=== PATIENT | female | born 1995 | race Caucasian/White ===

== ENCOUNTER 2020-12-28 11:26 | Outpatient (CLI) | payer BC, SELFPAY ==
--- NOTE | ~2020-12-28 | XR_ITS ---
EXAMINATION: XR hysterosalpingogram INDICATION: Infertility TECHNIQUE: Hysterosalpingogram was performed by Dr. Yoav Snider MD with fluoroscopic guidance . I was present to obtain fluoroscopic images. Fluoroscopy exposure time was 0.2 minutes. The DAP for this procedure was 2.42 Gycm2. FINDINGS: Fluoroscopic images demonstrate a normal appearing endometrial cavity which has been cannu lated. Upon injection of contrast, both fallopian tubes opacify and are normal in appearance. There is free spillage bilaterally. Uterus is without evidence of synechia. IMPRESSION: Patent fallopian tubes. Reviewed, dictated and finalized at location A. IMPRESSION: Patent fallopian tubes.
== END 2020-12-28 11:27 | disposition home or self-care (01) ==
LOC: ANHIMG 11:40
PROVIDERS: PCP Obstetrics & Gynecology; Visit Provider Obstetrics & Gynecology
DX: Z30.2 Encounter for sterilization (principal)
CPT/HCPCS: 58340; 74740; Q9966

== ENCOUNTER 2022-01-02 17:51 | Inpatient (IN) | payer BC, SELFPAY ==
[2022-01-02] VITALS (7 sets, daily range): BP systolic 116–131; BP diastolic 68–89; PULSE 78–95; TEMP 36.4–36.6; O2SAT 99; BMI 31.1
--- NOTE | 2022-01-02 18:18 | LDADM ---
This patient, Ade Cedillo, was admitted to Labor/Delivery/Recovery 109 on 01/02/22 at 17:51. Plans for labor, pain management and were discussed with patient. Patient/family oriented to hospital policies and general routines including ID bracelet, bed and alarms, visiting hours, pain management, procedures, bathroom and other care routines, personal items, smoking policy, room service/diet and guest tray routines, infant security routines, and visiting hours. Patient/Family are encouraged to report perceived risks to care and to ask questions if they do not understand what they are told or what they should do. See OBIX for further documentation.
[2022-01-02 18:36] LABS: Basophils Percent Auto 0.3 % (0.2-1.2); Eosinophils Absolute Auto 0.1 K/mm3 (0-0.3); Hematocrit 41.5 % (37.0-47.0); Hemoglobin 14.1 g/dL (12.0-15.0); Immature Granulocyte Absolute 0.07 K/mm3 (0.00-0.031); Immature Granulocyte Percent A 0.7 % (0-0.5); Lymphocytes Absolute Auto 2.18 K/mm3 (0.9-3.2); Lymphocytes Percent Auto 20.5 % (18.3-44.2); Mean Corpuscular Hemoglobin 29.6 pg (26-34); Mean Corpuscular Volume 87.2 fl (80-100); Mean Platelet Volume 10.6 fl (7.4-10.4); Monocytes Absolute Auto 0.9 K/mm3 (0.1-0.6); Monocytes Percent Auto 8.4 % (2.6-8.5); Neutrophils Absolute Auto 7.4 K/mm3 (1.3-6.7); Neutrophils Percent Auto 69.1 % (45.5-73.1); Platelet Count Result 205 k/mm3 (150-375); Red Blood Count 4.76 M/mm3 (4.2-5.4); Red Cell Distribution Width 13.2 % (11.5-14.5); White Blood Count 10.7 K/mm3 (4.5-10.0)
[2022-01-02] MEDS: DINOPROSTONE 10 MG VAG INSERT VAGINAL (19:04)
[2022-01-03] VITALS (180 sets, daily range): BP systolic 78–147; BP diastolic 46–127; PULSE 64–179; TEMP 36.3–36.9; O2SAT 95–100
[2022-01-03] MEDS: LACTATED RINGERS 1,000 ML 125 ML IV CONT ×3 (06:33→14:13)
[2022-01-03] MEDS: OXYTOCIN 30 UNITS/NS 500 ML 30 UNITS/500 ML BAG IV CONT (06:34)
--- NOTE | 2022-01-03 06:53 | WPDANESEPP ---
Anes - Eval Pre Procedure Procedure: Labor epidural Date/Time: 01/03/22 06:53 Surgeon: Thanh Perez Preop Diagnosis: Abd pain with contractions Pre Op Diagnosis: Induction of Labor Patient Data Age: 26 Gender: F Height: 1.7 m Weight: 90 kg Last Vital Signs Temp 97.4 F L 01/03/22 06:27 Pulse 108 H 01/03/22 05:50 BP 116/84 01/03/22 05:50 Pulse Ox 99 01/02/22 18:38 O2 Del Method Room Air 01/02/22 17:51 Allergies Allergy/AdvReac Type Severity Reaction Status Date / Time Sulfa (Sulfonamide Allergy Hives Verified 11/30/21 15:28 Antibiotics) Home Medications Medication Instructions Recorded Confirmed Type cetirizine 10 mg tablet (Zyrtec) 10 mg PO DAILY 11/30/21 11/30/21 History cholecalciferol (vitamin D3) 50 50 mcg PO DAILY 11/30/21 11/30/21 History mcg (2,000 unit) tablet (Vitamin D3) prenat.vits,no,ffp-diud-nocjo 1 tablet PO DAILY 11/30/21 11/30/21 History pyridoxine (vitamin B6) 100 mg 100 mg PO DAILY 11/30/21 11/30/21 History tablet Laboratory Tests 01/02/22 01/02/22 01/02/22 18:30 18:30 18:30 WBC 10.7 K/mm3 H K/mm3 (4.5-10.0) RBC 4.76 M/mm3 M/mm3 (4.2-5.4) Hgb 14.1 g/dL g/dL (12.0-15.0) Hct 41.5 % % (37.0-47.0) MCV 87.2 fl fl (80-100) MCH 29.6 pg pg (26-34) MCHC 34.0 g/dl g/dl (32-36) RDW 13.2 % % (11.5-14.5) Plt Count 205 k/mm3 k/mm3 (150-375) MPV 10.6 fl H fl (7.4-10.4) Immature Gran % (Auto) 0.7 % H % (0-0.5) Neut % (Auto) 69.1 % % (45.5-73.1) Lymph % (Auto) 20.5 % % (18.3-44.2) [place] % (Auto) 8.4 % % (2.6-8.5) Eos % (Auto) 1.0 % % (0-4.4) Baso % (Auto) 0.3 % % (0.2-1.2) Lymph # (Auto) 2.18 K/mm3 K/mm3 (0.9-3.2) [place] # (Auto) 0.9 K/mm3 H K/mm3 (0.1-0.6) Eos # (Auto) 0.1 K/mm3 K/mm3 (0-0.3) Baso # (Auto) 0.0 K/mm3 K/mm3 (0.0-0.1) Abs Immat Gran (auto) 0.07 K/mm3 H K/mm3 (0.00-0.031) Absolute Neuts (auto) 7.4 K/mm3 H K/mm3 (1.3-6.7) Absolute Nucleated RBC 0.0 K/mm3 K/mm3 (0.0-0.012) Nucleated RBC % 0.0 % % (0.0-0.2) RPR Pending Blood Type B Positive Antibody Screen Negative Patient hx anesthesia problems: none Family hx anesthesia problems: none Results Review: All pre-operative results and documents have been reviewed as part of the pre-operative evaluation. [facility] Past Medical History Medical History Overweight (BMI 25.0-29.9) and not yet delivered Family History Family History Other Patient denies significant medical history Social History Social History Smoking status: Never smoker Substance use: never Spiritual care concerns: No Exam Day of Procedure 01/03/22 06:53 Patient weight: overweight Airway: Mallampati scale class II
--- NOTE | 2022-01-03 07:40 | PM.IMHP ---
H&P: HPI History of Present Illness Date/Time: 01/03/22 07:40 Chief Complaint: Postdates induction Narrative: this is a 26-year-old para 0 whose last menstrual period of 03/22/2021, EDC of 12/27/2021, presents at 41 weeks gestation for induction of labor. Her has been uncomplicated she has an early ultrasound at 10 weeks confirming dates. She has negative group B strep PMFSH Past Medical History Medical History Overweight (BMI 25.0-29.9) and not yet delivered Family History Family History Other Patient denies significant medical history Social History Social History Smoking status: Never smoker Substance use: never Spiritual care concerns: No Meds Home Medications and Allergies Home Medications Medication Instructions Recorded Confirmed Type cetirizine 10 mg tablet (Zyrtec) 10 mg PO DAILY 11/30/21 11/30/21 History cholecalciferol (vitamin D3) 50 50 mcg PO DAILY 11/30/21 11/30/21 History mcg (2,000 unit) tablet (Vitamin D3) prenat.vits,no,nrm-paqb-ddlak 1 tablet PO DAILY 11/30/21 11/30/21 History pyridoxine (vitamin B6) 100 mg 100 mg PO DAILY 11/30/21 11/30/21 History tablet Allergies Allergy/AdvReac Type Severity Reaction Status Date / Time Sulfa (Sulfonamide Allergy Hives Verified 11/30/21 15:28 Antibiotics) Vital Signs Vital Signs - 24 hr 01/02/22 17:51 01/02/22 18:33 01/02/22 18:35 Temperature Pulse Rate 78 Blood Pressure 131/75 Pulse Oximetry 99 Oxygen Delivery Room Air 01/02/22 18:34 01/02/22 18:38 01/02/22 21:08 Temperature 97.9 F Pulse Rate 82 Blood Pressure 124/89 Pulse Oximetry 99 Oxygen Delivery 01/02/22 22:28 01/02/22 22:30 01/03/22 00:30 Temperature 97.5 F L 97.6 F Pulse Rate 91 Blood Pressure 116/68 Pulse Oximetry Oxygen Delivery 01/03/22 05:49 01/03/22 05:50 01/03/22 06:27 Temperature 97.4 F L Pulse Rate 98 108 H Blood Pressure 147/127 H 116/84 Pulse Oximetry Oxygen Delivery 01/03/22 07:16 01/03/22 07:30 Temperature Pulse Rate 68 87 Blood Pressure 110/65 105/76 Pulse Oximetry Oxygen Delivery Exam Const: General: cooperative, healthy appearing, comfortable, well groomed and average body habitus Orientation/consciousness: oriented to person, oriented to place and oriented to time HENMT: Head: normal to inspection Resp: Effort & Inspection: normal respiratory effort Cardio: Rate: regular rate Rhythm: regular rhythm Heart sounds: S1 normal heart sound present and S2 normal heart sound present GI: Inspection: normal to inspection ( gravid soft uterus) : External Female Exam: normal external appearance Speculum Exam - Vagina: normal appearance of the vagina Speculum Exam - Cervix: normal appearance of the cervix ( /2. AROM clear. FHTs reassuring) H&P: Results Labs Labs: Short CBC 01/02/22 Range/Units 18:30 WBC 10.7 H (4.5-10.0) K/mm3 Hgb 14.1 (12.0-15.0) g/dL Hct 41.5 (37.0-47.0) % Plt Count 205 (150-375) k/mm3 Assessment and Plan Assessment and plan (1) Post-dates : Code(s): O48.0 - Post-term Status: Acute Plan medical induction of labor. Spontaneous vaginal delivery expected. She has an epidural candidate
--- NOTE | 2022-01-03 11:47 | PM.OBPNLAB ---
Pain Control Date/time seen: 01/03/22 11:47 Pain control: tolerating well Pelvic Exam Dilation (cm): 2 Effacement (%): 50 station: -2 Amniotic membrane status: Leaking
[2022-01-03] MEDS: ONDANSETRON INJ 4 MG/2 ML VIAL IV PUSH (15:11)
--- NOTE | 2022-01-03 16:25 | PM.OBPNLAB ---
Pain Control Date/time seen: 01/03/22 16:25 Pain control: tolerating well and epidural Pelvic Exam Dilation (cm): 4 Effacement (%): 80 station: -2 Amniotic membrane status: Leaking Contractions Monitor mode: Internal
--- NOTE | 2022-01-03 19:38 | PM.OBPNLAB ---
Pain Control Date/time seen: 01/03/22 19:38 Pain control: tolerating well and epidural Pelvic Exam Dilation (cm): 5 Effacement (%): 80 station: -2 Amniotic membrane status: Leaking Contractions Monitor mode: Internal
[2022-01-03] MEDS: SODIUM CHLORIDE 0.9% IV 300 ML 180 ML I-UTERINE (20:02)
--- NOTE | 2022-01-03 23:03 | PM.OBPRVD ---
OB - Delivery Note Procedure Delivery date: 01/03/22 Procedure: mil Events: Other (postdates) Induction method: Per Cervidil Protocol Delivery augmentation: Rupture of Membranes and Pitocin Delivery monitor: External FHT and Internal Uterine Route of delivery: Episiotomy description: None Laceration Description: None Specimen: No Quantitative Blood Loss (ml): 159 Anesthesia type: Epidural Disposition: Floor [place] Baby Date of : 01/03/22 Weeks of gestation at delivery: 41 presentation: vertex position: Right Occiput Anterior Placenta delivery description: Spontaneous Cord Vessel Description: 3 Vessels and Delayed Cord Clamping score one minute: 9 score five minutes: 9
[2022-01-04] VITALS (20 sets, daily range): BP systolic 113–123; BP diastolic 65–91; PULSE 75–96; RESP 16–18; TEMP 36.5–37; O2SAT 96–100
[2022-01-04] MEDS: BENZOCAINE 20% AER SPR (*SP) 56 GM CAN 1 SPRAY TOPICAL (01:13)
[2022-01-04] MEDS: WITCH HAZEL 40 PADS 1 PAD TOPICAL (01:13)
[2022-01-04] MEDS: IBUPROFEN 600 MG TABLET PO ×2 (01:35→12:16)
[2022-01-04 05:29] LABS: Hemoglobin 11.1 g/dL (12.0-15.0)
[2022-01-04 06:49] LABS: Rapid Plasma Reagin Non-Reactive (NonReactive)
--- NOTE | 2022-01-04 06:49 | PM.OBPNVD ---
OB - PN: Subj Subjective Date/time seen: 01/04/22 06:49 Patient comments: no complaints and pain well controlled baby status: doing well and nursing well OB - PN: Obj Data Labs CBC & Chem 7: 01/04/22 05:16 Labs: Laboratory Results - last 24 hr 01/04/22 05:16 Hgb 11.1 L D Hct 33.0 L OB - PN A/P Plan day: 1 Plan: routine care Time Spent With Patient Time: Total time spent is greater than 50% in coordination of care (as documented) at patient's floor/unit and/or counseling patient: Time with patient: less than 15 minutes Exam Const: General: cooperative, healthy appearing and comfortable Nutritional Appearance: average body habitus Orientation/consciousness: oriented to person, oriented to place and oriented to time HENMT: Head: normal to inspection Resp: Effort & Inspection: normal respiratory effort GI: Inspection: normal to inspection
[2022-01-04] MEDS: DOCUSATE SODIUM 100 MG CAPSULE PO ×2 (09:35→16:26)
[2022-01-04] MEDS: MULTIVIT/MIN/PREN/FOL AC/IRON TABLET 1 TAB PO (09:35)
--- NOTE | 2022-01-04 10:46 | WPDANLDPN2 ---
Anes-Prog Note L&D Date/Time: 01/04/22 10:46 Comfortable throughout: labor and delivery Neuraxial method: epidural Epidural/Spinal procedure site: clean & non-tender Neuro status: Neuro function grossly intact. Cardiovascular status: normal Respiratory status: normal Airway patency: baseline Mental status: baseline Post-Op hydration status: normal Vital Signs: Last Vital Signs Temp 36.5 C 01/04/22 08:20 Pulse 75 01/04/22 08:20 Resp 16 01/04/22 08:20 BP 114/65 01/04/22 08:20 Pulse Ox 99 01/04/22 08:20 O2 Del Method Room Air 01/04/22 08:00 Pain score (VAS): 03/13 I/O: Intake & Output 01/03/22 01/04/22 01/04/22 23:59 07:59 15:59 Intake Total 1500 Output Total 170 Balance 1500 -170 Post-procedural complaints: none Patient feedback: Patient satisfied with anesthetic care.
--- NOTE | 2022-01-04 12:14 | PC.NURSE ---
[id number] Introductions were made, then consulted with patient to assess needs related to . Mother led the conversation with her?plans to feed?her infant and the?experience so far. Resources provided for inpatient and outpatient services using a resource guide and mom/baby guide. Mother voiced understanding of information and requests assistance with latching at this time. Mother works well with her infant with encouragement and education. Encouraged understanding of the benefits of skin to skin (unwrapping and placing vertically on her chest), responsive feeding and how to watch for early feeding signs, frequency of feeding on demand about every 8-12 times in 24 hours (every 2-3 hours), milk production, duration of feeding, signs of adequate intake/output (using the pie demonstration) and how to record on the feeding sheet. Reviewed positioning and ear, shoulder, hip alignment, supporting the breast with the sandwich hold, asymmetrical latch (off-center), and leading with the chin with a big open side gape. latched optimally to the left breast in football position. Education given to mother of how to visualize suck/swallow ratios and listening for drinking at the breast including father of baby who is actively supportive and encouraging. Infant was able to maintain latch without discomfort to mother. Nipple care reviewed with optimal latch and good positioning. Reviewed good handwashing when or touching the breast/nipples to prevent infection. Resources used to facilitate learning were used with the tool and mom/baby guide. Parents voiced understanding of responsive feedings, stimulating with skin to skin, hand expressed colostrum, massage touch, talking to to encourage if it has been 2 -3 hours since the start of the last , to call if does not latch or there is discomfort with . Reported to the primary RN.
[2022-01-05] MEDS: IBUPROFEN 600 MG TABLET PO (04:25)
[2022-01-05 08:20] VITALS: BP 122/75; PULSE 92; RESP 16; TEMP 36.5; O2SAT 99
--- NOTE | 2022-01-05 08:31 | PM.DS ---
DS: Admitting Diagnosis Discharge Date 01/05/22 Admitting Diagnosis postdates DS: Discharge Diagnosis Discharge Diagnosis (1) Post-dates : Code(s): O48.0 - Post-term Status: Acute DS: Summary Hospital Course Reason for hospitalization: patient was admitted for induction of labor postdates Hospital Course: patient was admitted for induction of labor post a . She underwent spontaneous vaginal delivery. Her 48hour course was unremarkable. She remained afebrile. She was up, ambulating, voiding without difficulty, breast-feeding, eating regular diet, and generally thought complaints. Time Spent with Patient Time attestation: Total time spent providing and/or coordinating discharge services: Exam Const: General: cooperative, healthy appearing and comfortable Nutritional Appearance: average body habitus HENMT: Head: normal to inspection Resp: Effort & Inspection: normal respiratory effort GI: Inspection: normal to inspection Discharge Plan Discharge Attending physician on discharge: Yoav Carson Discharging Clinician: Yoav Carson Patient Disposition: Home, Self-Care Activity: no shower, no straining and pelvic rest Diet: heart healthy Wound Care Instructions: follow printed instructions Patient Instructions: Antibiotic Form Stand Alone Forms: General Discharge Information Follow-up/Referrals: Yoav Carson MD [Physician] - Discharge Medications: Continued cetirizine [Zyrtec] 10 mg Tablet 10 mg PO DAILY pyridoxine (vitamin B6) 100 mg Tablet 100 mg PO DAILY #2 Tablet 1 tablet PO DAILY cholecalciferol (vitamin D3) [Vitamin D3] 50 mcg (2,000 unit) Tablet 50 mcg PO DAILY Date of admission: 01/02/22 17:51 Primary Care Provider: UNKNOWN,DOCTOR Admitting Provider: Yoav Carson Attending physician on admission: Yoav Carson Condition: Stable
--- NOTE | 2022-01-05 08:35 | P.PNOB_ITS ---
OB - PN: Subj Subjective Date/time seen: 01/05/22 08:35 Patient comments: no complaints and pain well controlled baby status: doing well [place] feeding status: exclusively breast feeding OB - PN: Obj Data Labs CBC & Chem 7: 01/04/22 05:16 OB - PN A/P Plan day: 2 Plan: routine care, discharge home and follow up 6 weeks Time Spent With Patient Time: Total time spent is greater than 50% in coordination of care (as documented) at patient's floor/unit and/or counseling patient: Time with patient: less than 15 minutes Exam Const: General: cooperative, healthy appearing and comfortable Nutritional Appearance: average body habitus Orientation/consciousness: oriented to person, oriented to place and oriented to time Resp: Effort & Inspection: normal respiratory effort GI: Inspection: normal to inspection
[2022-01-05] MEDS: MULTIVIT/MIN/PREN/FOL AC/IRON TABLET 1 TAB PO (09:22)
[2022-01-05] MEDS: DOCUSATE SODIUM 100 MG CAPSULE PO (09:22)
[2022-01-06 10:46] VITALS: BP 119/79; PULSE 71; RESP 20; TEMP 37.2; O2SAT 99
== END 2022-01-05 10:52 | disposition home or self-care (01) | DRG 807 ==
LOC: ANHLDR 17:54 → ANHOB2 01-04 01:23
PROVIDERS: Admitting Provider Obstetrics & Gynecology; Visit Provider Obstetrics & Gynecology
DX: O48.0 Post-term pregnancy (principal); Z37.0 Single live birth; Z3A.41 41 weeks gestation of pregnancy; O36.8330 Maternal care for abnormalities of the fetal heart rate or rhythm, third trimester, not applicable or unspecified
CPT/HCPCS: 36415; 85014; 85018; 85025; 86592; 86850; 86900; 86901; A9270; J2405; J2590; J2795; J7030; J7120